=== PATIENT | male | born 1985 | race Caucasian/White ===

== ENCOUNTER 2017-04-23 01:49 | Emergency (ER) | payer BC ==
[~2017-04-23] VITALS: Ht 185.4 cm; Wt 81.0 kg
[~2017-04-23 01:49] MED LIST: NO HOME MEDICATIONS
[2017-04-23 01:52] VITALS: BP 134/79; TEMP 98.1
[2017-04-23 03:03] VITALS: PULSE 69
== END 2017-04-23 03:05 | disposition home or self-care (01) ==
LOC: COL.ER 01:49
DX: S61.411A Laceration without foreign body of right hand, initial encounter (principal); W25.XXXA Contact with sharp glass, initial encounter; Y92.009 Unspecified place in unspecified non-institutional (private) residence as the place of occurrence of the external cause